=== PATIENT | female | born 1995 | race African-American/Black ===

== ENCOUNTER 2019-09-26 23:13 | Inpatient (IN) ==
[2019-09-26] MEDS ORDERED: ACETAMINOPHEN 325 MG TABLET PO PRN (23:29)
[2019-09-26] MEDS ORDERED: ONDANSETRON 4 MG/2 ML VIAL IV PRN (23:29)
[2019-09-26] MEDS ORDERED: BUTORPHANOL 2 MG/ML VIAL IV PRN (23:29)
[2019-09-26 23:59] LABS: Basophils % 0.1 % (0.0-0.8); Eosinophils % 0.3 % (0.00-10.9); Hematocrit 35.8 VOL% (35.7-47.0); Hemoglobin 11.5 GM/DL (12.0-16.0); Immature Granulocytes % 0.5 %; Immature Granulocytes Absolute 0.04 #; Lymphocytes # 1.4 10*3/uL (1.4-4.0); Lymphocytes % 18.1 % (21.3-54.2); Mean Corpuscular HGB Conc 32.1 GM/DL (32-36); Mean Corpuscular Volume 91.1 FL (87-102); Mean Platelet Volume 11.5 FL (9.6-12.0); Monocytes % 4.5 % (1.7-12.7); Neutrophils % 76.5 % (38.7-73.9); Platelet Count 190 T/CUMM (130-400); Red Blood Count 3.93 MC/CUMM (3.8-5.5); Red Cell Distribution Width 13.4 % (9.3-17.3); White Blood Count 7.6 T/CUMM (4-12)
[2019-09-27] MEDS ORDERED: PENICILLIN G POTASSIUM INJ 6,000,000 UNIT in SODIUM CHLORIDE 0.9% 100 ML IV ONE (03:00)
[2019-09-27] MEDS: LACTATED RINGERS 1,000 ML IV SCH ×3 (03:41→19:02)
[2019-09-27] MEDS: PENICILLIN G POTASSIUM INJ 3,000,000 UNIT in SODIUM CHLORIDE 0.9% 100 ML IV SCH ×3 (07:25→19:00)
[2019-09-27] MEDS: OXYTOCIN/LR 20 UNIT/1,000 ML BAG IV SCH (14:24)
[2019-09-27] MEDS ORDERED: CITRIC ACID/SODIUM CITRATE 30 ML UDCUP PO ONE (17:15)
[2019-09-27] MEDS ORDERED: LACTATED RINGERS 1,000 ML IV ONE (17:15)
[2019-09-27] MEDS ORDERED: ePHEDrine 50 MG/ML AMP IV PRN (17:15)
[2019-09-27] MEDS ORDERED: hydrOXYzine HCL 25 MG/1 ML VIAL IM PRN (17:15)
[2019-09-27] MEDS ORDERED: PROMETHAZINE 25 MG/1 ML VIAL IM ONE (17:15)
[2019-09-27] MEDS ORDERED: diphenhydrAMINE 50 MG/1 ML VIAL IV PRN ×2 (17:15)
[2019-09-27] MEDS ORDERED: NALOXONE 0.4 MG/ML VIAL IV PRN (17:15)
[2019-09-27] MEDS ORDERED: FAMOTIDINE 20 MG/2 ML VIAL IV ONE (17:15)
[2019-09-27] MEDS ORDERED: LACTATED RINGERS 1,000 ML IV SCH (17:30)
[2019-09-27] MEDS ORDERED: fentaNYL 2 MCG/ROPIV 0.2% EPID 100 ML EPIDURAL SCH (17:30)
[2019-09-27] MEDS ORDERED: miSOPROStoL 200 MCG TABLET ONE (22:32)
[2019-09-27] MEDS ORDERED: METHYLERGONOVINE 0.2 MG/1 ML AMP ONE (22:33)
[2019-09-27] MEDS ORDERED: CARBOPROST TROMETHAMINE 250 MCG/ML AMP IM ONE (22:33)
[2019-09-27 23:18] LABS: Cord Venous Blood HCO3 21.7 MMOL/L; Cord Venous Blood PCO2 44.3 MMHG; Cord Venous Blood PO2 34.7
[2019-09-28] MEDS ORDERED: miSOPROStoL 200 MCG TABLET RECTAL ONE (01:00)
[2019-09-28] MEDS: OXYTOCIN/LR 20 UNIT/1,000 ML BAG IV SCH (02:16)
[2019-09-28] MEDS ORDERED: RHO(D) IMMUNE GLOBULIN 300 MCG SYRINGE IM ONE (02:50)
[2019-09-28] MEDS ORDERED: MEASLES/MUMPS/RUBELLA VACCINE 0.5 ML VIAL SUBCUT ONE (02:50)
[2019-09-28] MEDS ORDERED: HYDROCORTISONE 2.5% RECTAL CREAM 30 GM TUBE TOP PRN (02:50)
[2019-09-28] MEDS ORDERED: WITCH HAZEL PADS 100/JAR TOP PRN (02:50)
[2019-09-28] MEDS ORDERED: LANOLIN 50% CREAM 0.3 OZ TUBE TOP PRN (02:50)
[2019-09-28] MEDS ORDERED: BISACODYL 10 MG SUPP RECTAL PRN (02:50)
[2019-09-28] MEDS ORDERED: BENZOCAINE 20%/MENTHOL 0.5% SPRAY 56 GM CAN TOP PRN (02:50)
[2019-09-28] MEDS ORDERED: DIPH/TET/ACEL PERT BOOSTER VACCINE 0.5 ML VIAL IM ONE (02:50)
[2019-09-28] MEDS ORDERED: ACETAMINOPHEN 500 MG TABLET ONE (02:55)
[2019-09-28] MEDS: ACETAMINOPHEN 500 MG TABLET PO PRN ×2 (03:00→17:43)
[2019-09-28] MEDS: KETOROLAC 30 MG/1 ML VIAL IV SCH ×3 (03:02→17:44)
[2019-09-28 04:53] LABS: Basophils % 0.2 % (0.0-0.8); Eosinophils % 0.1 % (0.00-10.9); Hematocrit 32.7 VOL% (35.7-47.0); Hemoglobin 10.2 GM/DL (12.0-16.0); Immature Granulocytes % 0.7 %; Immature Granulocytes Absolute 0.06 #; Lymphocytes # 1.1 10*3/uL (1.4-4.0); Lymphocytes % 12.5 % (21.3-54.2); Mean Corpuscular HGB Conc 31.2 GM/DL (32-36); Mean Corpuscular Volume 92.9 FL (87-102); Mean Platelet Volume 11.8 FL (9.6-12.0); Monocytes % 7.3 % (1.7-12.7); Neutrophils % 79.2 % (38.7-73.9); Platelet Count 139 T/CUMM (130-400); Red Blood Count 3.52 MC/CUMM (3.8-5.5); Red Cell Distribution Width 13.2 % (9.3-17.3); White Blood Count 8.9 T/CUMM (4-12)
[2019-09-28] MEDS: DOCUSATE SODIUM 100 MG CAPSULE PO SCH ×2 (09:32→21:10)
[2019-09-28] MEDS: IBUPROFEN 800 MG TABLET PO SCH (23:53)
[2019-09-29 09:25] VITALS: BP 132/70
[2019-09-29] MEDS: IBUPROFEN 800 MG TABLET PO SCH (09:58)
[2019-09-29] MEDS: DOCUSATE SODIUM 100 MG CAPSULE PO SCH (09:58)
== END 2019-09-29 15:05 | disposition home or self-care (01) | DRG 807 ==
LOC: N.LDOUT 23:13 → N.LD 23:19 → N.OB 09-28 02:28
PROVIDERS: ADMIT Obstetrics & Gynecology; ATTEND Obstetrics & Gynecology